=== PATIENT | male | born 1970 | race American Indian/Alaskan Native ===

== ENCOUNTER 2022-03-14 17:09 | Emergency (ER) | payer SELFPAY ==
[2022-03-14 18:41] LABS: Basophils # (Auto) 0.1 K/mm3 (0.0-0.1); Eosinophils # (Auto) 0.3 K/mm3 (0.0-0.4); Eosinophils % (Auto) 3.4 % (0.0-4.3); Hematocrit 37.3 % (35.5-45.6); Hemoglobin 12.9 gm/dl (11.8-15.2); Lymphocytes # (Auto) 2.7 K/mm3 (1.2-5.4); Lymphocytes % (Auto) 29.5 % (13.4-35.0); Mean Corpuscular HGB Conc 35 % (32-34); Mean Corpuscular Volume 90 fl (84-94); Monocytes # (Auto) 0.7 K/mm3 (0.0-0.8); Monocytes % (Auto) 8.1 % (0.0-7.3); Platelet Count 138 K/mm3 (140-440); Red Blood Count 4.14 M/mm3 (3.65-5.03); Red Cell Distribution Width 13.3 % (13.2-15.2)
[2022-03-14 18:50] LABS: INR 0.87 (0.87-1.13)
[2022-03-14 18:51] LABS: Partial Thromboplastin Time 30.2 Sec. (24.2-36.6)
[2022-03-14 19:02] LABS: Alanine Aminotransferase 43 units/L (7-56); Albumin 4.8 g/dL (3.9-5); BUN/Creatinine Ratio 18; Blood Urea Nitrogen 20 mg/dL (9-20); Calcium 9.7 mg/dL (8.4-10.2); Hemolysis Index 7
[2022-03-15] MEDS ORDERED: IBUPROFEN 600 MG TAB PO ONE (04:00)
[2022-03-15] MEDS ORDERED: traMADol 50 MG TAB PO ONE (04:00)
[2022-03-15] MEDS ORDERED: SULFAMETHOXAZOLE/TRIMETHOPRIM 800/160MG DS TAB PO ONE (04:00)
[2022-03-15] MEDS ORDERED: CLINDAMYCIN 150 MG CAP PO ONE (04:01)
--- NOTE | 2022-03-15 06:20 | Emergency Department Report ---
ED Extremity Problem HPI - General Chief complaint: Extremity Injury, Lower Stated complaint: SWOLLEN LEFT FOOT Source: patient Mode of arrival: Ambulatory Limitations: No Limitations - History of Present Illness Initial comments: Patient is a 51-year-old -[place] male with a history of [id number] diabetes with diabetic neuropathy, and DVT who presents to the ED with complaint of acute onset persistent distal left great toe pain and swelling with open ulcer on the plantar aspect of the left great toe with thick purulent discharge for the last 1 week. Patient states that he was initially evaluated by his primary care physician who told him that there was no infection on that left foot. Patient states that over the past 3 days the pain and the swelling of the left great toe has extended to the left foot dorsally with worsening pain with ambulation. Patient denies fever, chills, traumatic injury, dizziness, syncope, chest pain, shortness of breath, cough, nausea and vomiting or fall. MD Complaint: extremity pain (Left great toe pain and swelling with an open ulcer with thick purulent discharge), joint swelling (Left great toe pain and swelling with open ulcer with thick purulent discharge) -: Sudden, week(s) (1) Location: left, toe (Great toe) History of Same: No -: Yes arthralgia ( left great toe pain and swelling) Radiation: distal Severity scale (0 -10): 6 Quality: aching, sharp, constant Consistency: constant Improves with: nothing Worsens with: weight bearing, walking, palpation Associated Symptoms: denies other symptoms, arthralgias (Swollen, painful left great toe due to an open ulcerated wound with thick purulent discharge). denies: chest pain, shortness of breath, fever, myalgias - Related Data Previous Rx's Medication Instructions Recorded Last Taken Type HYDROcodone/APAP 5-325 [[place] 1 each PO Q6HR PRN #10 tablet 04/30/16 Unknown Rx 5/325] cephALEXin [Keflex] 500 mg PO Q6HR #30 capsule 04/30/16 Unknown Rx metFORMIN [Glucophage] 500 mg PO BID #31 tablet 04/30/16 Unknown Rx Gabapentin 300 mg PO ONCE #7 cap 11/05/16 Unknown Rx HYDROcodone/APAP 5-325 [[place] 1 each PO Q6HR PRN #15 tablet 07/15/18 Unknown Rx 5/325] Silver Sulfadiazine [Silvadene] 1 applic TP DAILY #85 cream..g. 07/15/18 Unknown Rx Clindamycin [Clindamycin CAP] 300 mg PO Q6H #40 cap 03/15/22 Unknown Rx Ibuprofen [Motrin 800 MG tab] 800 mg PO Q8HR PRN #30 tablet 03/15/22 Unknown Rx Sulfamethoxazole/Trimethoprim 1 each PO Q12H #20 tablet 03/15/22 Unknown Rx [Bactrim DS TAB] traMADoL [Ultram] 50 mg PO Q6HR PRN #12 tablet 03/15/22 Unknown Rx Allergies Allergy/AdvReac Type Severity Reaction Status Date / Time No Known Allergies Allergy Verified 04/30/16 21:57 ED Review of Systems ROS: Stated complaint: SWOLLEN LEFT FOOT Other details as noted in HPI Constitutional: denies: chills, fever Eyes: denies: eye pain, eye discharge, vision change ENT: denies: ear pain, throat pain Respiratory: denies: cough, shortness of breath, wheezing Cardiovascular: denies: chest pain, palpitations Endocrine: no symptoms reported Gastrointestinal: denies: abdominal pain, nausea, diarrhea Genitourinary: denies: urgency, dysuria Musculoskeletal: joint swelling, arthralgia (Distal left great toe pain with swelling due to an open ulcerated wound with thick purulent discharge). denies: back pain Skin: other (An open ulcerated wound on plantar aspect of the left great toe with thick purulent discharge). denies: rash, lesions Neurological: denies: headache, weakness, paresthesias Psychiatric: denies: anxiety, depression Hematological/Lymphatic: denies: easy bleeding, easy bruising ED Past Medical Hx - Past Medical History Previous Medical History?: Yes Hx Diabetes: Yes Hx Deep Vein Thrombosis: Yes (left leg) - Surgical History Past Surgical History?: Yes Additional Surgical History: hernia - Social History Smoking Status: Never Smoker Substance Use Type: Alcohol - Medications Home Medications: Home Medications Medication Instructions Recorded Confirmed Last Taken Type HYDROcodone/APAP 5-325 [[place] 1 each PO Q6HR PRN #10 tablet 04/30/16 Unknown Rx 5/325] cephALEXin [Keflex] 500 mg PO Q6HR #30 capsule 04/30/16 Unknown Rx metFORMIN [Glucophage] 500 mg PO BID #31 tablet 04/30/16 Unknown Rx Gabapentin 300 mg PO ONCE #7 cap 11/05/16 Unknown Rx HYDROcodone/APAP 5-325 [[place] 1 each PO Q6HR PRN #15 tablet 07/15/18 Unknown Rx 5/325] Silver Sulfadiazine [Silvadene] 1 applic TP DAILY #85 cream..g. 07/15/18 Unknown Rx Clindamycin [Clindamycin CAP] 300 mg PO Q6H #40 cap 03/15/22 Unknown Rx Ibuprofen [Motrin 800 MG tab] 800 mg PO Q8HR PRN #30 tablet 03/15/22 Unknown Rx Sulfamethoxazole/Trimethoprim 1 each PO Q12H #20 tablet 03/15/22 Unknown Rx [Bactrim DS TAB] traMADoL [Ultram] 50 mg PO Q6HR PRN #12 tablet 03/15/22 Unknown Rx ED Physical Exam - General Limitations: No Limitations General appearance: alert, in no apparent distress - Head Head exam: Present: atraumatic, normocephalic, normal inspection - Eye Eye exam: Present: normal appearance, PERRL, EOMI Pupils: Present: normal accommodation - ENT ENT exam: Present: normal exam, normal orophraynx, mucous membranes moist, TM's normal bilaterally, normal external ear exam - Neck Neck exam: Present: normal inspection, full ROM. Absent: tenderness - Respiratory Respiratory exam: Present: normal lung sounds bilaterally. Absent: respiratory distress, wheezes, rales, rhonchi, chest wall tenderness, accessory muscle use, decreased breath sounds, prolonged expiratory - Cardiovascular Cardiovascular Exam: Present: normal rhythm, tachycardia, normal heart sounds. Absent: systolic murmur, diastolic murmur, rubs, gallop - GI/Abdominal GI/Abdominal exam: Present: soft, normal bowel sounds. Absent: tenderness, guarding, hyperactive bowel sounds, organomegaly - Extremities Exam Extremities exam: Present: normal inspection, full ROM, tenderness (Palpable distal left great toe tenderness with swelling due to an open ulcerated wound with thick purulent discharge), normal capillary refill, joint swelling. Absent: pedal edema, calf tenderness - Back Exam Back exam: Present: normal inspection, full ROM. Absent: tenderness, CVA tenderness (R), CVA tenderness (L), muscle spasm, paraspinal tenderness, vertebral tenderness - Neurological Exam Neurological exam: Present: alert, oriented X3, CN II-XII intact, normal gait, reflexes normal - Psychiatric Psychiatric exam: Present: normal affect, normal mood - Skin Skin exam: Present: warm, dry, intact, normal color, other (Swollen, mild erythematous rash on distal left great toe due to an open small ulcerated wound with thick purulent discharge on the plantar aspect of the left great toe). Absent: rash ED Medical Decision Making - Lab Data Result diagrams: 03/14/22 18:21 03/14/22 18:21 - Medical Decision Making This is a 51-year-old -[place]i male with a history of [id number] diabetes with diabetic neuropathy, and DVT who presents to the ED with complaint of acute onset persistent distal left great toe pain and swelling with open ulcer on the plantar aspect of the left great toe with thick purulent discharge for the last 1 week. Patient states that he was initially evaluated by his primary care physician who told him that there was no infection on that left foot. Patient states that over the past 3 days the pain and the swelling of the left great toe has extended to the left foot dorsally with worsening pain with ambulation. In the ED, patient is alert and oriented x3 and is not in any distress. Patient was treated for pain in the ED. patient also received initial oral antibiotics in the ED. Lab test results were reviewed and are all nonactionable. The wound was cleaned extensively with normal saline and Betadine solution and dressed appropriately. Patient was discharged home on pain medications and antibiotics and advised to follow-up with his primary care physician in 7 to 10 days for reevaluation or return to the ED immediately if symptoms get worse. - Differential Diagnosis Great toe laceration; foot ulcer; toe ulcer; cellulitis; Critical care attestation.: If time is entered above; I have spent that time in minutes in the direct care of this critically ill patient, excluding procedure time. ED Disposition Clinical Impression: Cellulitis of great toe of left foot, Diabetic ulcer of left great toe Disposition: 01 HOME / SELF CARE / HOMELESS Is pt being admited?: No Does the pt Need Aspirin: No Condition: Stable Instructions: Diabetes Mellitus Type 2 in Adults (ED), Cellulitis, Adult, Zgqp-[id number], Paronychia, [id number], Diabetes Mellitus and Foot Care Additional Instructions: All lab test results were reviewed and are all nonactionable. Therefore take medication as advised, drink plenty of fluids and follow-up with your primary care physician in 7 to 10 days for reevaluation. Consider following up with a barrel filler for further evaluation of your diabetic foot ulcer. Return to the ED immediately if symptoms get worse. Prescriptions: Sulfamethoxazole/Trimethoprim [Bactrim DS TAB] 1 each PO Q12H #20 tablet Clindamycin [Clindamycin CAP] 300 mg PO Q6H #40 cap Ibuprofen [Motrin 800 MG tab] 800 mg PO Q8HR PRN #30 tablet PRN Reason: Pain traMADoL [Ultram] 50 mg PO Q6HR PRN #12 tablet PRN Reason: Pain Referrals: FRACISCO CLANCY MD [Staff Physician] - 3-5 Days KIM SAMAYOA MD [Staff Physician] - 3-5 Days LYNN HARDY MD [Staff Physician] - 3-5 Days Time of Disposition: 06:24 Print Language: DANISH
[2022-03-15 06:48] VITALS: BP 122/80
== END 2022-03-15 06:46 | disposition home or self-care (01) ==
LOC: ED 17:09
DX: L03.032 Cellulitis of left toe (principal); E11.621 Type 2 diabetes mellitus with foot ulcer; L97.529 Non-pressure chronic ulcer of other part of left foot with unspecified severity; F10.20 Alcohol dependence, uncomplicated; E11.9 Type 2 diabetes mellitus without complications
CPT/HCPCS: 36415; 80053; 85025; 85610; 85730; 86850; 86900; 86901; 99283

== ENCOUNTER 2022-03-30 11:13 | Emergency (ER) | payer SELFPAY ==
[2022-03-30 16:49] LABS: Basophils # (Auto) 0.1 K/mm3 (0.0-0.1); Eosinophils # (Auto) 0.4 K/mm3 (0.0-0.4); Eosinophils % (Auto) 4.5 % (0.0-4.3); Hematocrit 31.7 % (35.5-45.6); Hemoglobin 10.4 gm/dl (11.8-15.2); Lymphocytes # (Auto) 2.2 K/mm3 (1.2-5.4); Lymphocytes % (Auto) 24.2 % (13.4-35.0); Mean Corpuscular HGB Conc 33 % (32-34); Mean Corpuscular Volume 88 fl (84-94); Monocytes # (Auto) 0.8 K/mm3 (0.0-0.8); Monocytes % (Auto) 9.1 % (0.0-7.3); Platelet Count 164 K/mm3 (140-440); Red Blood Count 3.59 M/mm3 (3.65-5.03); Red Cell Distribution Width 13.7 % (13.2-15.2)
--- NOTE | 2022-03-30 16:59 | Emergency Department Report ---
ED Extremity Problem HPI - General Chief complaint: Extremity Problem,Nontraumatic Stated complaint: LEFT TOE SWELLING Source: patient Mode of arrival: Ambulatory Limitations: No Limitations - History of Present Illness Initial comments: 51-year-old male presents to the ED with left great toe ulcer and swelling to the left foot. Patient patient was prior treated here on March for cellulitis. States that he was unable to follow-up due to insurance. Patient was prescribed Bactrim states he completed the complete course. Patient has a history of [id number] diabetes with diabetic neuropathy, and DVT. Patient denies any numbness and tingling at present time. Patient states he has been cleaning wound with Betadine and keeping a dressing. He states he has been wearing steel toe boots to work on a daily basis. He states that he has been not been to wound care due to his insurance did not start until April 08 . MD Complaint: extremity pain Onset/Timin -: week(s) Location: left History of Same: Yes Severity scale (0 -10): 0 Quality: aching Consistency: intermittent Improves with: nothing Worsens with: walking - Related Data Previous Rx's Medication Instructions Recorded Last Taken Type HYDROcodone/APAP 5-325 [[place] 1 each PO Q6HR PRN #10 tablet 04/30/16 Unknown Rx 5/325] cephALEXin [Keflex] 500 mg PO Q6HR #30 capsule 04/30/16 Unknown Rx metFORMIN [Glucophage] 500 mg PO BID #31 tablet 04/30/16 Unknown Rx Gabapentin 300 mg PO ONCE #7 cap 11/05/16 Unknown Rx HYDROcodone/APAP 5-325 [[place] 1 each PO Q6HR PRN #15 tablet 07/15/18 Unknown Rx 5/325] Silver Sulfadiazine [Silvadene] 1 applic TP DAILY #85 cream..g. 07/15/18 Unknown Rx Ibuprofen [Motrin 800 MG tab] 800 mg PO Q8HR PRN #30 tablet 03/15/22 Unknown Rx Sulfamethoxazole/Trimethoprim 1 each PO Q12H #20 tablet 03/15/22 Unknown Rx [Bactrim DS TAB] traMADoL [Ultram] 50 mg PO Q6HR PRN #12 tablet 03/15/22 Unknown Rx Clindamycin [Clindamycin CAP] 300 mg PO Q6H 10 Days #20 cap 03/30/22 Unknown Rx Clindamycin [Clindamycin CAP] 600 mg PO BID 10 Days #20 capsule 03/30/22 Unknown Rx traMADoL [Ultram] 50 mg PO Q6HR 3 Days #12 tab 03/30/22 Unknown Rx Allergies Allergy/AdvReac Type Severity Reaction Status Date / Time No Known Allergies Allergy Verified 04/30/16 21:57 ED Review of Systems ROS: Stated complaint: LEFT TOE SWELLING Other details as noted in HPI Constitutional: denies: chills, fever Eyes: denies: eye pain, eye discharge, vision change ENT: denies: ear pain, throat pain Respiratory: denies: cough, shortness of breath, wheezing Cardiovascular: denies: chest pain, palpitations Endocrine: no symptoms reported Gastrointestinal: denies: abdominal pain, nausea, diarrhea Genitourinary: denies: urgency, dysuria Musculoskeletal: denies: back pain, joint swelling, arthralgia Skin: other (open wound). denies: rash, lesions Neurological: denies: headache, weakness, numbness, paresthesias Psychiatric: denies: anxiety, depression Hematological/Lymphatic: denies: easy bleeding, easy bruising ED Past Medical Hx - Past Medical History Previous Medical History?: Yes Hx Diabetes: Yes Hx Deep Vein Thrombosis: Yes (left leg) - Surgical History Past Surgical History?: Yes Additional Surgical History: hernia - Social History Smoking Status: Never Smoker Substance Use Type: Alcohol - Medications Home Medications: Home Medications Medication Instructions Recorded Confirmed Last Taken Type HYDROcodone/APAP 5-325 [[place] 1 each PO Q6HR PRN #10 tablet 04/30/16 Unknown Rx 5/325] cephALEXin [Keflex] 500 mg PO Q6HR #30 capsule 04/30/16 Unknown Rx metFORMIN [Glucophage] 500 mg PO BID #31 tablet 04/30/16 Unknown Rx Gabapentin 300 mg PO ONCE #7 cap 11/05/16 Unknown Rx HYDROcodone/APAP 5-325 [[place] 1 each PO Q6HR PRN #15 tablet 07/15/18 Unknown Rx 5/325] Silver Sulfadiazine [Silvadene] 1 applic TP DAILY #85 cream..g. 07/15/18 Unknown Rx Ibuprofen [Motrin 800 MG tab] 800 mg PO Q8HR PRN #30 tablet 03/15/22 Unknown Rx Sulfamethoxazole/Trimethoprim 1 each PO Q12H #20 tablet 03/15/22 Unknown Rx [Bactrim DS TAB] traMADoL [Ultram] 50 mg PO Q6HR PRN #12 tablet 03/15/22 Unknown Rx Clindamycin [Clindamycin CAP] 300 mg PO Q6H 10 Days #20 cap 03/30/22 Unknown Rx Clindamycin [Clindamycin CAP] 600 mg PO BID 10 Days #20 capsule 03/30/22 Unknown Rx traMADoL [Ultram] 50 mg PO Q6HR 3 Days #12 tab 03/30/22 Unknown Rx ED Physical Exam - General Limitations: No Limitations General appearance: alert, in no apparent distress - Head Head exam: Present: atraumatic, normocephalic - Eye Eye exam: Present: normal appearance - ENT ENT exam: Present: mucous membranes moist - Neck Neck exam: Present: normal inspection - Respiratory Respiratory exam: Present: normal lung sounds bilaterally. Absent: respiratory distress - Cardiovascular Cardiovascular Exam: Present: regular rate, normal rhythm. Absent: systolic murmur, diastolic murmur, rubs, gallop - GI/Abdominal GI/Abdominal exam: Present: soft, normal bowel sounds - Rectal Rectal exam: Present: deferred - Extremities Exam Extremities exam: Present: normal inspection - Expanded Lower Extremity Exam Left Foot/Toe exam: Present: swelling, erythema - Back Exam Back exam: Present: normal inspection - Neurological Exam Neurological exam: Present: alert, oriented X3 - Psychiatric Psychiatric exam: Present: normal affect, normal mood - Skin Skin exam: Present: warm, dry, intact, normal color. Absent: rash ED Course Vital Signs 03/30/22 03/30/22 12:46 17:53 Temperature 98.4 F Pulse Rate 95 H 90 Respiratory 16 18 Rate Blood Pressure 161/96 160/94 [Left] O2 Sat by Pulse 99 99 Oximetry ED Medical Decision Making - Lab Data Result diagrams: 03/30/22 16:17 03/30/22 16:17 - Medical Decision Making 51-year-old male presents to the ED with left great toe ulcer and swelling to the left foot. Patient patient was prior treated here on March for cellulitis. States that he was unable to follow-up due to insurance. Patient was prescribed Bactrim states he completed the complete course. Patient has a history of [id number] diabetes with diabetic neuropathy, and DVT. Patient denies any numbness and tingling at present time. Patient states he has been cleaning wound with Betadine and keeping a dressing. He states he has been wearing steel toe boots to work on a daily basis. He states that he has been not been to wound care due to his insurance did not start until April 08 . Physical examination patient has swelling noted to the left foot with also the great toe but no significant change from last visit on MarchMarch 15, 2022. No significant change in labs. Patient will prescribe on the course of antibiotic as sent to wound care. Rechecked the patient is resting quietly quietly and comfortable and feeling better. I discussed the results of diagnostic study, my clinical impression and the plan for further treatment with the patient. Patient agrees with plan and discharge at this present time. All question addressed. I have given the patient instruction regarding a diagnosis ,expectation ,follow- up and return precaution. I explained to the patient that emergent condition may arise and to return to the ED for new worsen and any new persisting condition. I have explained the importance of following up with the primary care physician or referral physician listed below has instructed. The patient verbalized understanding of discharge instruction. Abnormal Lab Results 03/30/22 03/30/22 03/30/22 16:17 16:17 16:17 WBC 9.2 RBC 3.59 L Hgb 10.4 L Hct 31.7 L MCV 88 MCH 29 MCHC 33 RDW 13.7 Plt Count 164 Lymph % (Auto) 24.2 [place] % (Auto) 9.1 H Eos % (Auto) 4.5 H Baso % (Auto) 1.0 Lymph # (Auto) 2.2 [place] # (Auto) 0.8 Eos # (Auto) 0.4 Baso # (Auto) 0.1 Seg Neutrophils % 61.2 Seg Neutrophils # 5.6 PT 14.0 INR 0.97 APTT 27.7 Sodium 137 Potassium 3.9 Chloride 97.7 L Carbon Dioxide 27 Anion Gap 16 BUN 16 Creatinine 0.8 Estimated GFR > 60 BUN/Creatinine Ratio 20 Glucose 207 H Calcium 9.2 Total Bilirubin 0.50 AST 18 ALT 16 Alkaline Phosphatase 66 Total Protein 7.2 Albumin 4.1 Albumin/Globulin Ratio 1.3 Critical care attestation.: If time is entered above; I have spent that time in minutes in the direct care of this critically ill patient, excluding procedure time. ED Disposition Clinical Impression: Cellulitis Qualifiers: Site of cellulitis: extremity Site of cellulitis of extremity: toe Laterality: left Qualified Code(s): L03.032 - Cellulitis of left toe Disposition: 01 HOME / SELF CARE / HOMELESS Is pt being admited?: No Does the pt Need Aspirin: No Condition: Stable Instructions: Cellulitis, Adult, [id number] Additional Instructions: Take medication has prescribed Return to the ED for any worsening symptom Follow-up with wound care has previously discussed Prescriptions: Clindamycin [Clindamycin CAP] 300 mg PO Q6H 10 Days #20 cap Clindamycin [Clindamycin CAP] 600 mg PO BID 10 Days #20 capsule traMADoL [Ultram] 50 mg PO Q6HR 3 Days #12 tab Referrals: PRIMARY CARE, [Primary Care Provider] - 3-5 Days [facility] [Provider Group] - 3-5 Days Forms: Work/School Release Form(ED) Time of Disposition: 17:24
[2022-03-30 17:00] LABS: INR 0.97 (0.87-1.13)
[2022-03-30 17:01] LABS: Partial Thromboplastin Time 27.7 Sec. (24.2-36.6)
[2022-03-30 17:07] LABS: Alanine Aminotransferase 16 units/L (7-56); Albumin 4.1 g/dL (3.9-5); BUN/Creatinine Ratio 20; Blood Urea Nitrogen 16 mg/dL (9-20); Calcium 9.2 mg/dL (8.4-10.2); Hemolysis Index 13
[2022-03-30 17:56] VITALS: BP 160/94
== END 2022-03-30 18:09 | disposition home or self-care (01) ==
LOC: ED 11:13
DX: L03.90 Cellulitis, unspecified (principal); E11.9 Type 2 diabetes mellitus without complications; Z86.718 Personal history of other venous thrombosis and embolism; Z79.899 Other long term (current) drug therapy
CPT/HCPCS: 36415; 80053; 85025; 85610; 85730; 99283